=== PATIENT | male | born 1950 | race Caucasian/White ===

== ENCOUNTER 2021-12-04 05:31 | Inpatient (IN) | payer MEDICARE ==
[2021-11-27 14:19] LABS: BASOPHILS % (AUTO) 0.6 % (0-1); EOSINOPHILS # (AUTO) 0.1 X10'3 (0-0.9); LYMPHOCYTES # (AUTO) 0.5 X10'3 (1.1-4.8); LYMPHOCYTES % (AUTO) 13.6 % (21-51); MEAN CORPUSCULAR HEMOGLOBIN 31.7 PG (27.0-31.0); MEAN CORPUSCULAR HGB CONC 33.8 g/dL (33.0-36.5); MEAN CORPUSCULAR VOLUME 93.8 FL (78-98); MEAN PLATELET VOLUME 7.8 FL (7.4-10.4); MONOCYTES # (AUTO) 0.4 X10'3 (0-0.9); MONOCYTES % (AUTO) 9.3 % (2-12); NEUTROPHILS # (AUTO) 2.9 X10'3 (1.8-7.7); NEUTROPHILS % (AUTO) 73.5 % (42-75); PRE OP HEMATOCRIT 39.8 % (42.0-52.0); PRE OP HEMOGLOBIN 13.4 g/dL (14.0-17.9); PRE OP PLATELET COUNT 230 X10'3 (140-440); RED BLOOD COUNT 4.24 X10'6 (4.70-6.10); RED CELL DISTRIBUTION WIDTH 14.8 % (11.5-14.5)
[2021-11-27 14:26] LABS: PRE OP PROTIME 10.3 SECONDS (9.0-12.0)
[2021-11-27 14:27] LABS: ALBUMIN 3.5 G/DL (3.4-5.0); ALBUMIN/GLOBULIN RATIO 1.1 (1.1-1.5); ALKALINE PHOSPHATASE 95 IU/L (46-116); BLOOD UREA NITROGEN 19 MG/DL (7-18); BUN/CREATININE RATIO 24.1 (5.4-32.0); CALCIUM 8.5 MG/DL (8.5-10.1); CHLORIDE 107 MMOL/L (99-107); CREATININE 0.79 MG/DL (0.60-1.10); PRE OP ALT 23 U/L (30-65); PRE OP ANION GAP 7 (8-16); PRE OP AST 17 U/L (10-37); PRE OP BILIRUB, TOTAL 0.5 MG/DL (0.0-1.0); PRE OP GLUCOSE 99 MG/DL (70-104); PRE OP POTASSIUM 3.8 MMOL/L (3.4-5.1); PRE OP SODIUM 142 MMOL/L (135-145); TOTAL CARBON DIOXIDE 27.9 MMOL/L (24-32); TOTAL PROTEIN 6.8 G/DL (6.4-8.2); eGFR > 90 ML/MIN
[~2021-12-04] VITALS: Ht 177.8 cm; Wt 82.5 kg
[2021-12-04] VITALS (22 sets, daily range): BP systolic 110–130; BP diastolic 64–75
[~2021-12-04 05:31] MED LIST: MALTODEXTRIN/FRUCTOSE 0.68 KCAL/ML LIQUID 296ML BOTTLE PO ONE; NO HOME MEDS; ceFOXitin 2GM-NS 100mL ADDvant 100 ML IV ONE; famotidine 20mg tablet PO ONE; heparin, porcine 5000 units/ml vial SQ ONE; metroNIDAZOLE-Flagyl 500mg/NS 100ML IVPB IV ONE; ringers solution, lacted 1,000 ML IV SCH
[2021-12-04] MEDS ORDERED: tobramycin 40mg/ml inj ONE (06:46)
[2021-12-04] MEDS ORDERED: BUPIVAcaine 0.5% inj/PF 30 ML ONE (06:47)
[2021-12-04] MEDS ORDERED: povidone-iodine 10% ointment 1 APPLIC APPLIC TP ONE (06:47)
[2021-12-04] MEDS ORDERED: LIDOcaine 1% W/epiNEPHrine 1:100,000 20ml vial ONE (06:47)
[2021-12-04] MEDS ORDERED: INDOCYANINE GREEN 25 MG/10 ML VIAL IV ONE (07:23)
[2021-12-04] MEDS ORDERED: sevoflurane 250ml liquid IH ONE (07:31)
[2021-12-04] MEDS ORDERED: rocuronium 10mg/ml inj IV ONE ×2 (07:31→07:32)
[2021-12-04] MEDS ORDERED: fentaNYL /PF 50mcg/ml 5ml ampule ONE (07:32)
[2021-12-04] MEDS ORDERED: propofol inj 20 ML IV ONE (07:32)
[2021-12-04] MEDS ORDERED: midazolam 1 mg/ML 2ml injection ONE (07:32)
[2021-12-04] MEDS ORDERED: morphine 2 MG/ML inj. syringe IV PRN (08:40)
[2021-12-04] MEDS ORDERED: morphine 4 MG/ML inj SYRINge IV PRN (08:40)
[2021-12-04] MEDS ORDERED: meperidine/PF 25mg/ml syringe IV PRN ×3 (08:40)
[2021-12-04] MEDS ORDERED: ringers solution, lacted 1,000 ML IV SCH (08:40)
[2021-12-04] MEDS ORDERED: proCHLORperazine 10 MG/2 ml inj IV PRN (08:40)
[2021-12-04] MEDS ORDERED: ondansetron/PF 4mg/2ml inj IV PRN ×2 (08:40→12:40)
[2021-12-04] MEDS ORDERED: BUPIVAcaine 0.5% inj/PF 30 ml vial IJ ONE (09:11)
[2021-12-04] MEDS ORDERED: dexamethasone sod phosphate 4mg/ml inj. ONE (11:08)
[2021-12-04] MEDS ORDERED: fentaNYL/PF 50MCG/1 ML 2ML syringe ONE (11:09)
[2021-12-04] MEDS ORDERED: ondansetron/PF 4mg/2ml inj ONE (11:09)
[2021-12-04] MEDS ORDERED: acetaminophen 1,000mg/100ml IV 100 ML IV ONE (11:21)
[2021-12-04] MEDS ORDERED: albumin (Human) 5% 250ml 250 ML IV ONE (11:49)
[2021-12-04] MEDS ORDERED: neostigmine methylsulfate 1 MG/ML 10ml vial ONE (11:51)
[2021-12-04] MEDS ORDERED: glycopyrrolate 0.2mg/ml inj ONE (12:25)
--- NOTE | 2021-12-04 12:30 | NUR ---
PT ARRIVED TO RR VIA BED ACCOMPANIED BY DR CARDONA, ANESTHESIA REPORT GIVEN, VSS, PT STILL WAKING UP-DENIES PAIN, NOTED TO HAVE CLARICE DRAINS-LEFT AND RIGHT, DRAINING RED BLOODY DRAINAGE-SXN INTACT, OSTOMY SITE-BAG IN PLACE, STOMA PINK. SCDS ON, 20G PIV RIGHT HAND, F/C IN PLACE-DRAINING YELLOW URINE.
[2021-12-04] MEDS ORDERED: naloxone 0.4 mg/ml inj IV PRN (12:40)
[2021-12-04] MEDS ORDERED: normal saline 1000ml 1,000 ML IV SCH (12:40)
[2021-12-04] MEDS ORDERED: HYDROmorph/NS 0.2 mg/ml PCA 100 ML IV SCH (13:00)
[2021-12-04] MEDS: acetaminophen 1,000mg/100ml IV 100 ML IV SCH ×3 (13:14→21:26)
[2021-12-04] MEDS: HYDROmorph/NS 0.2 mg/ml PCA 100 ML IV SCH ×5 (13:58→23:00)
--- NOTE | 2021-12-04 14:00 | NUR ---
PT VSS, BIT MORE PAINFUL, C/O CRAMPING-IV TYLENOL AND DEMEROL GIVEN, TORADOL AND IV TYLENOL ORDERED FOR THE FLOOR ALONG WITH DILAUDID CADD-SET UP ACCORDING TO ORDERS, CLARICE'S EMPTIED, NOT CHANGES IN ASSESSMENT
--- NOTE | 2021-12-04 14:14 | NUR ---
Patient in room PAS IN 900. I have received report from YISSEL VILCHIS FROM [facility] and had the opportunity to ask questions and assume patient care.
--- NOTE | 2021-12-04 14:25 | NUR ---
PT AWAKE TOLERATING ICE CHIPS, VSS, EDUCATED AND USING DILAUDID CADD, PAIN BETTER /10, NO CHANGES IN ABD-OSTOMY PINK, NOTED TO HAVE SMALL AMOUNT OF STOOL IN BAG, CLARICE'S WITH SXN INTACT BILATERALLY, F/C DRAINING, REPORT CALLED TO JESICA DEY-ALL QUESTIONS ANSWERED, PT TAKEN VIA BED WITH ALL BELONGINGS TO ROOM 4010B-FAMILY IN ROOM, PRIMARY RN IN ROOM TO RECEIVE PT, BED LOW AND LOCKED, CALL LIGHT IN REACH, VS STARTED, ABD ASSESSED BY BOTH RN'S.
[2021-12-04] MEDS: potassium CL 20mEq in D5-1/2NS 1,000 ML IV SCH ×2 (15:02→21:25)
[2021-12-04] MEDS ORDERED: ketorolac tromethamine 15mg/ml inj. IM SCH (16:00)
[2021-12-04] MEDS: metroNIDAZOLE-Flagyl 500mg/NS 100 ML IV SCH (16:21)
[2021-12-04] MEDS: ketorolac tromethamine 15mg/ml inj. IV SCH (17:12)
[2021-12-04] MEDS: ceFOXitin inj 1,000 MG in normal saline 100ml IV soln 100 ML IV SCH (17:49)
--- NOTE | 2021-12-04 18:40 | NUR ---
Problems reprioritized. Patient report given, questions answered & plan of care reviewed with YISSEL ARIAS.
[2021-12-04] MEDS: heparin, porcine 5000 units/ml vial SQ SCH (21:26)
[2021-12-05] MEDS ORDERED: ketorolac tromethamine 15mg/ml inj. IV SCH
[2021-12-05] MEDS: metroNIDAZOLE-Flagyl 500mg/NS 100 ML IV SCH ×3 (00:06→15:41)
[2021-12-05] MEDS: ceFOXitin inj 1,000 MG in normal saline 100ml IV soln 100 ML IV SCH (00:06)
[2021-12-05] MEDS: ketorolac tromethamine 15mg/ml inj. IV SCH ×4 (00:07→23:42)
[2021-12-05] MEDS: HYDROmorph/NS 0.2 mg/ml PCA 100 ML IV SCH ×12 (01:00→22:59)
[2021-12-05] MEDS: acetaminophen 1,000mg/100ml IV 100 ML IV SCH ×4 (02:17→21:22)
[2021-12-05 02:22] VITALS: BP 114/67
[2021-12-05 06:00] VITALS: BP 123/69
[2021-12-05 06:23] LABS: BASOPHILS % (AUTO) 0.2 % (0-1); EOSINOPHILS % (AUTO) 0 % (0-6); HEMATOCRIT 34.5 % (42.0-52.0); HEMOGLOBIN 11.8 g/dl (14.0-17.9); LYMPHOCYTES # (AUTO) 0.4 X10'3 (1.1-4.8); LYMPHOCYTES % (AUTO) 6.5 % (21-51); MEAN CORPUSCULAR HEMOGLOBIN 32.8 PG (27.0-31.0); MEAN CORPUSCULAR HGB CONC 34.3 g/dL (33.0-36.5); MEAN CORPUSCULAR VOLUME 95.6 FL (78-98); MEAN PLATELET VOLUME 7.8 FL (7.4-10.4); MONOCYTES # (AUTO) 0.5 X10'3 (0-0.9); MONOCYTES % (AUTO) 8.1 % (2-12); NEUTROPHILS # (AUTO) 5.3 X10'3 (1.8-7.7); NEUTROPHILS % (AUTO) 85.2 % (42-75); PLATELET COUNT 198 X10'3 (140-440); RED BLOOD COUNT 3.61 X10'6 (4.70-6.10); RED CELL DISTRIBUTION WIDTH 13.5 % (11.5-14.5); WHITE BLOOD COUNT 6.2 X10'3 (4.5-11.0)
[2021-12-05 06:31] LABS: ANION GAP 6 (8-16); BLOOD UREA NITROGEN 17 MG/DL (7-18); BUN/CREATININE RATIO 17.5 (5.4-32.0); CALCIUM 8.2 MG/DL (8.5-10.1); CHLORIDE 106 MMOL/L (99-107); CREATININE 0.97 MG/DL (0.60-1.10); GLUCOSE 127 MG/DL (70-104); POTASSIUM 3.9 MMOL/L (3.5-5.1); SODIUM 139 MMOL/L (135-145); TOTAL CARBON DIOXIDE 27.2 MMOL/L (24-32); eGFR 77 ML/MIN
[2021-12-05] MEDS: heparin, porcine 5000 units/ml vial SQ SCH ×2 (07:13→21:23)
--- NOTE | 2021-12-05 07:28 | NUR ---
VERIFIED WITH PHARMACIST, OK TO ADMINISTER iv acetaminopheN
[2021-12-05 10:00] VITALS: BP 109/61
--- NOTE | 2021-12-05 12:02 | NUR ---
Pt bladder scanned, volume 330ml. Will continue to monitor patient
[2021-12-05] MEDS: potassium CL 20mEq in D5-1/2NS 1,000 ML IV SCH (13:17)
--- NOTE | 2021-12-05 13:40 | NUR ---
attempted to contact MD. Pt c/o discomfort in bladder. bladder scan volume >516ml. Discussed with charge nurse, pt straight cath.
[2021-12-05 14:00] VITALS: BP 103/57
--- NOTE | 2021-12-05 14:24 | NUR ---
pt straight cathed at 1400. 650ml drained from bladder. pt states he immediately felt relief. will continue to monitor pt
[2021-12-05 18:00] VITALS: BP 101/62
--- NOTE | 2021-12-05 18:30 | NUR ---
Patient in room ORTHO 4010. I have received report from reanna Amaya and had the opportunity to ask questions and assume patient care.
[2021-12-05] MEDS: tamsulosin 0.4mg capsule PO SCH (21:22)
[2021-12-05 22:00] VITALS: BP 123/70
[2021-12-06] MEDS: HYDROmorph/NS 0.2 mg/ml PCA 100 ML IV SCH ×6 (00:57→11:00)
[2021-12-06] MEDS: acetaminophen 1,000mg/100ml IV 100 ML IV SCH ×2 (01:56→07:29)
[2021-12-06] MEDS: potassium CL 20mEq in D5-1/2NS 1,000 ML IV SCH (05:48)
[2021-12-06 06:00] VITALS: BP 117/64
--- NOTE | 2021-12-06 06:11 | NUR ---
Problems reprioritized. Patient report given, questions answered & plan of care reviewed with reanna Amaya.
[2021-12-06 06:15] LABS: BASOPHILS % (AUTO) 0.3 % (0-1); EOSINOPHILS # (AUTO) 0.1 X10'3 (0-0.9); EOSINOPHILS % (AUTO) 1.5 % (0-6); HEMATOCRIT 32.7 % (42.0-52.0); HEMOGLOBIN 11.1 g/dl (14.0-17.9); LYMPHOCYTES # (AUTO) 0.4 X10'3 (1.1-4.8); LYMPHOCYTES % (AUTO) 10.1 % (21-51); MEAN CORPUSCULAR HEMOGLOBIN 32.2 PG (27.0-31.0); MEAN CORPUSCULAR HGB CONC 34.1 g/dL (33.0-36.5); MEAN CORPUSCULAR VOLUME 94.5 FL (78-98); MEAN PLATELET VOLUME 7.6 FL (7.4-10.4); MONOCYTES # (AUTO) 0.3 X10'3 (0-0.9); NEUTROPHILS % (AUTO) 80.1 % (42-75); PLATELET COUNT 156 X10'3 (140-440); RED BLOOD COUNT 3.46 X10'6 (4.70-6.10); RED CELL DISTRIBUTION WIDTH 13.5 % (11.5-14.5); WHITE BLOOD COUNT 3.7 X10'3 (4.5-11.0)
[2021-12-06 06:18] LABS: ALBUMIN 2.8 G/DL (3.4-5.0); ANION GAP 6 (8-16); BLOOD UREA NITROGEN 11 MG/DL (7-18); BUN/CREATININE RATIO 12.9 (5.4-32.0); CALCIUM 8.2 MG/DL (8.5-10.1); CHLORIDE 107 MMOL/L (99-107); CREATININE 0.85 MG/DL (0.60-1.10); GLUCOSE 108 MG/DL (70-104); SODIUM 140 MMOL/L (135-145); eGFR 89 ML/MIN
[2021-12-06] MEDS: ketorolac tromethamine 15mg/ml inj. IV SCH ×2 (07:13→15:06)
[2021-12-06] MEDS: heparin, porcine 5000 units/ml vial SQ SCH ×2 (07:15→20:00)
[2021-12-06 10:00] VITALS: BP 133/72
--- NOTE | 2021-12-06 10:45 | NUR ---
pt ambulated around nursing unit once. R&L CLARICE output 50ml thus far. Illeostomy output 150ml thus far. Patient c/o almost no pain, -07/20. Will continue to monitor patient
[2021-12-06] MEDS ORDERED: PCA WASTE DOCUMENTATION MC SCH (12:10)
--- NOTE | 2021-12-06 15:54 | NUR ---
Patient ambulated nurses unit 3 times this AM shift. Patient pain is tolerable despite CADD being d/c'd. CLARICE drains removed by MD. Patient and were educated on illeostomy care. Wound care will see patient one more time tomorrow morning prior to discharge. Pt voiding spontaneously. Will continue to monitor patient
[2021-12-06 18:00] VITALS: BP 132/71
[2021-12-06] MEDS: tamsulosin 0.4mg capsule PO SCH (20:37)
[2021-12-06] MEDS: HYDROcodone/acetaminophen 5mg/325mg tablet PO PRN (20:37)
[2021-12-06 21:00] VITALS: BP 138/51
[2021-12-07] MEDS: ketorolac tromethamine 15mg/ml inj. IV SCH ×2 (00:38→08:44)
[2021-12-07 05:00] VITALS: BP 127/69
[2021-12-07 06:42] LABS: BASOPHILS % (AUTO) 0.5 % (0-1); EOSINOPHILS # (AUTO) 0.1 X10'3 (0-0.9); EOSINOPHILS % (AUTO) 2.6 % (0-6); HEMATOCRIT 34.3 % (42.0-52.0); HEMOGLOBIN 11.6 g/dl (14.0-17.9); LYMPHOCYTES # (AUTO) 0.4 X10'3 (1.1-4.8); LYMPHOCYTES % (AUTO) 10.6 % (21-51); MEAN CORPUSCULAR HEMOGLOBIN 32.2 PG (27.0-31.0); MEAN CORPUSCULAR VOLUME 94.9 FL (78-98); MEAN PLATELET VOLUME 8.1 FL (7.4-10.4); MONOCYTES # (AUTO) 0.3 X10'3 (0-0.9); MONOCYTES % (AUTO) 7.9 % (2-12); NEUTROPHILS # (AUTO) 2.9 X10'3 (1.8-7.7); NEUTROPHILS % (AUTO) 78.4 % (42-75); PLATELET COUNT 175 X10'3 (140-440); RED BLOOD COUNT 3.61 X10'6 (4.70-6.10); RED CELL DISTRIBUTION WIDTH 13.2 % (11.5-14.5); WHITE BLOOD COUNT 3.7 X10'3 (4.5-11.0)
[2021-12-07 07:22] LABS: ALBUMIN 2.8 G/DL (3.4-5.0); ANION GAP 5 (8-16); BLOOD UREA NITROGEN 7 MG/DL (7-18); BUN/CREATININE RATIO 8.6 (5.4-32.0); CALCIUM 8.4 MG/DL (8.5-10.1); CHLORIDE 108 MMOL/L (99-107); CREATININE 0.81 MG/DL (0.60-1.10); GLUCOSE 109 MG/DL (70-104); POTASSIUM 3.9 MMOL/L (3.5-5.1); SODIUM 139 MMOL/L (135-145); TOTAL CARBON DIOXIDE 26.3 MMOL/L (24-32); eGFR > 90 ML/MIN
[2021-12-07] MEDS: heparin, porcine 5000 units/ml vial SQ SCH (08:00)
[2021-12-07] MEDS ORDERED: tamsulosin capsule PO (08:37)
[2021-12-07 10:00] VITALS: BP 138/73
[2021-12-07] MEDS: HYDROcodone/acetaminophen 5mg/325mg tablet PO PRN (10:14)
--- NOTE | 2021-12-07 11:10 | NUR ---
Discharged pt. at this time per 's orders. Discharge instruction given to patient and - both verbalized understanding and had no questions at this time. Additionally, Dr. Roman was at the bedside this morning speaking to the pt. and regarding discharge arrangements. Pt. transported off the floor via w/c by the nurse Aide. Pt. leaving via private vehicle drove by the his . Addendum: 12/07/21 at 1313 by Tracey García RN Amended: Links added.
--- NOTE | 2021-12-07 15:48 | NUR ---
[facility] assessment for 71 year old male pt s/p laparoscopic/tobotic LAR w/ colorectal anastomosis and diverting loop ileostomy for distal sigmoid and proximal rectal cancers, s/p neoadj chemo radiation deeper into pelvis than expected. Pt is POD #3 and is in room for ostomy education. Provided them written information and reading material as well as You Tube videos to watch. Arrive in room for ostomy pouch change. present. Removed ostomy wafer w/ demon on proper removal for skin protection. Stoma is mildly edematous, measures 32mm, dark red, os directional south, peristomal skin in intact, sutures to mucocutaneous junction are intact. Skin cleansed w/ verbal instruction during demo. Mikie p[laced, open to 35 mm, skin prep to nehemias stomal skin and drainage pouch placed by . Educated on diet and methods to firm stool if needed. Pt is not going home with HH and supplies for DME faxed to [facility] for [facility] office to sign. Pt and verbalized understanding and were supplied with 5 ostomy pouches, skin prep and stoma powder for discharge home. Report to mental health case manager re supplies. OSTOMY FACTS: Almost everyone has know of, or met, businessmen, entertainers, athletes, and people from all walks of life who have an ostomy. Ostomates (a person that has an ostomy) can ski, ride horses, bowl, and get healthy exercise in countless ways. Your usual activities of daily living can be resumed as soon as you are able. Gradually you will be able to wear the clothes worn before surgery. With modern pouches, nothing is noticeable under your clothing. It may be difficult at first to believe that an intimate relationship can be possible when one's body has been disfigured by surgery. This is not true. Love, fortunately, is not easily destroyed when it is based on genuine appreciation of a person as a thinking, feeling, reacting human being. AN OSTOMY IS NOT AN IMPAIRMENT!! DEFINITIONS: 1.OSTOMY: An opening that is created by a surgical procedure. The opening is called a "stoma". 2.STOMA: A surgical opening in the abdomen (belly) where intestine is brought through the abdominal wall and connected at the skin level. A stoma is shiny, wet and at first is dark purple but eventually turns pink, similar to the inside lining of your mouth. 3.COLON: A portion of the large bowel. 4.COLOSTOMY: A fecal diversion with an opening, (stoma) created anywhere along the colon. Making a connection between the colon and the abdominal wall. 5.ILLEOSTOMY: A fecal diversion with an opening, (stoma) created in the small intestine. Making a connection between the small intestine and the abdominal wall. 6.UROSTOMY: A urinary diversion with the ureters connected to a segment of the small bowel and one end is brought out and connected to the abdominal wall, creating a stoma. SHAPES and SIZES: "The stoma is usually round or oval. "It is anywhere from a dime to half dollar in size. "A stoma reaches its permanent size 6-8 weeks after surgery. PRODUCTS: 1.POUCH or APPLIANCE: An external device to contain stool or urine output and protect the skin around the stoma. It can be a one piece pouch or two pieces (a pouch and a wafer). 2.BARRIER: Substance that is used to protect the skin around the stoma from drainage and adhesive. 3.SKIN PREP or SEALANT: Product applied to the skin to reduce injury from moisture, drainage, or repeated pouch removal. Available in spray or wipes. 4.CLOSURE or CLAMP: A device used to close the bottom of a drainable pouch. 5.BRIDGE or JAN: A piece of plastic placed under a loop of bowel on the skins surface, to secure the bowel in place while the skin heals. POUCH CHANGE PROCEEDURE: 1.Assemble all the supplies "1 or 2 piece appliance "Ostomy paste (if needed) "Ostomy powder (if needed) "Skin prep wipes ( not recommended with coloplast products) "Moist wash cloth or cotton balls 2.Remove plastic center and paper backing from pouch. If pouch or wafer is not precut, use the sizing guide, or plastic backing from pouch to make a pattern. Do this by placing the paper over the stoma and trace it, or draw a pattern. Cut the wafer to fit and set it aside. 3.Remove old pouch by lifting up on tape while pressing skin down away from the tape. If there is a clip on your pouch, remove it and save it. 4.Clean skin or stoma with moistened wash cloth or cotton balls. Place a clean cotton ball over stoma hole to catch any drainage. Let skin dry. 5.For grooves or uneven areas in the skin- apply ostomy paste and sprinkle with ostomy powder, then gently shape the past so the area around the stoma is smooth and as flat as possible. Wipe off or blow away excess. Blot powder with skin prep wipe (DO NOT wipe powder). Let dry until no longer sticky. 6.For irritated or reddened skin- sprinkle ostomy powder on red or irritated area. Wipe off or blow away excess. Blot powder with skin prep wipe (DO NOT wipe powder). Let dry until no longer sticky. 7.Apply skin prep wipe to skin to which the pouch and tape will adhere. Let dry until no longer sticky. 8.If you have a one piece appliance- apply pouch so it is centered around the stoma. No skin should be exposed to stool. All skin should be covered by paste or pouch. 9.If you have a two piece appliance- Apply the wafer as described above, then snap or stick pouch onto wafer. Check to make sure wafer and pouch are securely connected. Addendum: 12/07/21 at 1551 by Shasta Matias RN Amended: Links added.
== END 2021-12-07 11:20 | disposition home or self-care (01) | DRG 330 ==
LOC: PAS IN 05:31 → ORTHO 4S 14:20
PROVIDERS: ADMIT Colon & Rectal Surgery; ATTEND Colon & Rectal Surgery
PROC: 0D1B0Z4 Bypass Ileum to Cutaneous, Open Approach (ICD-10-PCS; 2021-12-04)
PROC: 0DTN0ZZ Resection of Sigmoid Colon, Open Approach (ICD-10-PCS; 2021-12-04)
PROC: 8E0W4CZ Robotic Assisted Procedure of Trunk Region, Percutaneous Endoscopic Approach (ICD-10-PCS; 2021-12-04)
PROC: 0DTP4ZZ Resection of Rectum, Percutaneous Endoscopic Approach (ICD-10-PCS; principal; 2021-12-04 07:31)
DX: C20 Malignant neoplasm of rectum (principal); C77.5 Secondary and unspecified malignant neoplasm of intrapelvic lymph nodes; K62.5 Hemorrhage of anus and rectum; K21.9 Gastro-esophageal reflux disease without esophagitis; N40.1 Benign prostatic hyperplasia with lower urinary tract symptoms; R33.8 Other retention of urine; K63.89 Other specified diseases of intestine; K63.5 Polyp of colon
CPT/HCPCS: 36415; 71046; 80048; 80053; 82948; 85025; 85610; 85730; 86885; 86900; 86901; 87081; 88305; 88307; 93005; A4355; A4371; A4421; A4615; A4618; A6250; A6258; A6449; A7000; C1758; G0378; J0131; J0694; J1100; J1170; J1644; J1885; J2175; J2250; J2405; J2704; J2710; J3010; J3260; J3480; J3490; J7030; J7120; P9045; S0020